=== PATIENT | female | born 1990 | race Two or more races ===

== ENCOUNTER 2020-07-07 09:21 | Inpatient (IN) | payer MEDICAID ==
[~2020-07-07] VITALS: Ht 157.5 cm; Wt 79.4 kg
[2020-07-07 10:36] LABS: BASOPHILS % 0.4 % (0.0-2.0); EOSINOPHILS % 0.8 % (0.0-5.0); HEMATOCRIT. 35.5 % (36.0-48.0); HEMOGLOBIN. 12.1 g/dL (12.0-16.0); LYMPHOCYTES % 22.7 % (20.0-50.0); MEAN CORPUSCULAR HEMOGLOBIN 30.7 pg (28.0-32.0); MEAN CORPUSCULAR VOLUME 89.8 fL (81.0-99.0); MEAN PLATELET VOLUME 10.4 fl (7.4-10.4); MONOCYTES % 8.6 % (2.0-8.0); NEUTROPHILS % 67.5 % (40.0-76.0); PLATELET 162 x1000/uL (130-400); RED BLOOD CELL COUNT 3.95 mill/uL (4.2-5.4); RED CELL DISTRIBUTION WIDTH 13.4 % (11.6-14.6)
[2020-07-07 10:43] LABS: CLARITY URINE CLEAR (CLEAR); COLOR URINE YELLOW (YELLOW); KETONES URINE NEGATIVE (NEGATIVE); LEUKOCYTE ESTERASE URINE 2+ (NEGATIVE); NITRITE URINE NEGATIVE (NEGATIVE); OCCULT BLOOD URINE NEGATIVE (NEGATIVE); PROTEIN URINE NEGATIVE (NEGATIVE); SPECIFIC GRAVITY URINE 1.008 (1.005-1.030); UROBILINOGEN URINE 0.2 E.U./dL (0.2-1.0)
[2020-07-07 11:10] LABS: *AMPHETAMINES SCREEN URINE NEGATIVE (NEGATIVE); *BARBITURATES SCREEN URINE NEGATIVE (NEGATIVE); *BENZODIAZEPINES SCREEN URINE NEGATIVE (NEGATIVE); *COCAINE SCREEN URINE NEGATIVE (NEGATIVE); INR 0.9; METHADONE URINE SCREEN NEGATIVE (NEGATIVE); PARTIAL THROMBOPLASTIN TIME 25.9 sec (23.4-31.0); PROTHROMBIN TIME 9.8 sec (9.6-11.0)
[2020-07-07 11:11] LABS: CANNABINOID URINE SCREEN NEGATIVE (NEGATIVE); OPIATES URINE SCREEN NEGATIVE (NEGATIVE); PHENCYCLIDINE URINE SCREEN NEGATIVE (NEGATIVE)
[2020-07-07 11:25] LABS: HEPATITIS B SURFACE ANTIGEN NEGATIVE
[2020-07-07] MEDS: LACTATED RINGERS 1,000 ML IV SCH ×2 (15:49→15:51)
[2020-07-07] MEDS ORDERED: DEXT 5%/LR + PITOCIN 20UNITS/L 1,000 ML IV SCH ×2 (15:51→22:14)
[2020-07-07] MEDS ORDERED: METHYLERGONOVINE MALEATE 0.2 MG/ML IM PRN (16:00)
[2020-07-07] MEDS ORDERED: NALOXONE HCL 0.4 MG/ML 1ML VIAL IM PRN (16:00)
[2020-07-07] MEDS ORDERED: CARBOPROST TROMETHAMINE 250 MCG/ML AMPUL IM PRN (16:00)
[2020-07-07] MEDS ORDERED: CITRIC ACID/SODIUM CITRATE SOLN 30ML UDC PO NR (20:55)
[2020-07-07] MEDS ORDERED: DIPHENHYDRAMINE 50MG/ML VIAL IV PRN (21:00)
[2020-07-07] MEDS ORDERED: BUTORPHANOL TARTRATE 2 MG/ML VIAL IM PRN (21:00)
[2020-07-07] MEDS ORDERED: KETOROLAC 30MG/ML VIAL IV PRN (21:00)
[2020-07-07] MEDS ORDERED: MORPHINE SULFATE/PF 1MG/ML 10ML AMP ONE (21:04)
[2020-07-07] MEDS ORDERED: STERILE WATER FOR INJECTION 10ML VIAL ONE (21:06)
[2020-07-07] MEDS ORDERED: EPHEDRINE SULFATE 50MG/ML VIAL ONE (21:06)
[2020-07-07] MEDS ORDERED: METOCLOPRAMIDE HCL 10MG/2ML VIAL ONE (21:06)
[2020-07-07] MEDS ORDERED: OXYTOCIN 10 UNITS/ML 1ML ONE (21:06)
[2020-07-07] MEDS ORDERED: ONDANSETRON HCL 4MG/2ML INJ ONE (21:06)
[2020-07-07] MEDS ORDERED: SODIUM CHLORIDE 0.9% 10ML VIAL ONE (21:06)
[2020-07-07] MEDS ORDERED: CEFAZOLIN SODIUM 1000MG/VIAL ONE (21:06)
[2020-07-07] MEDS ORDERED: GLYCOPYRROLATE 0.2 MG/ML 2ML VIAL ONE (21:10)
[2020-07-07] MEDS ORDERED: HYDROCODONE/ACETAMINOPHEN 5/325MG TABLET PO PRN (22:15)
[2020-07-07] MEDS ORDERED: HEMORRHOIDAL SUPP PR PRN (22:15)
[2020-07-07] MEDS ORDERED: ONDANSETRON HCL 4MG/2ML INJ IV PRN (22:15)
[2020-07-07] MEDS ORDERED: DIPHENHYDRAMINE 25MG CAPSULE PO PRN (22:15)
[2020-07-07] MEDS ORDERED: LANOLIN OINT 7GM TUBE TOP PRN (22:15)
[2020-07-07] MEDS ORDERED: BISACODYL 10MG SUPP PR PRN (22:15)
[2020-07-07] MEDS ORDERED: IBUPROFEN 400MG TABLET PO PRN (22:15)
[2020-07-07] MEDS ORDERED: LIDOCAINE HCL/PF 1% 10 MG/ML 5ML VIAL ONE (22:30)
[2020-07-08 00:45] VITALS: BP 106/64
[2020-07-08 04:00] VITALS: BP 99/51
[2020-07-08 06:23] LABS: BASOPHILS % 0.2 % (0.0-2.0); EOSINOPHILS % 0.2 % (0.0-5.0); HEMOGLOBIN. 9.3 g/dL (12.0-16.0); LYMPHOCYTES % 16.4 % (20.0-50.0); MEAN CORPUSCULAR HEMOGLOBIN 31.1 pg (28.0-32.0); MEAN CORPUSCULAR VOLUME 89.8 fL (81.0-99.0); MONOCYTES % 5.8 % (2.0-8.0); NEUTROPHILS % 77.4 % (40.0-76.0); PLATELET 125 x1000/uL (130-400); RED CELL DISTRIBUTION WIDTH 13.7 % (11.6-14.6)
[2020-07-08] MEDS: FERROUS SULFATE 325MG TABLET PO SCH ×3 (07:30→17:56)
[2020-07-08 08:00] VITALS: BP 104/51
[2020-07-08] MEDS: SIMETHICONE 80MG TABLET CHEW PO SCH ×4 (08:00→20:46)
[2020-07-08 12:00] VITALS: BP 100/51
[2020-07-08] MEDS ORDERED: DEXT 5%/LACTATED RINGERS 1,000 ML IV SCH (12:00)
[2020-07-08] MEDS: PRENATAL VIT/FE FUMARATE/FA TABLET PO SCH (13:39)
[2020-07-08 16:00] VITALS: BP 101/57
[2020-07-08 20:10] VITALS: BP 98/62
[2020-07-08] MEDS: DOCUSATE SODIUM 100MG CAPSULE PO SCH (20:46)
[2020-07-08] MEDS: ACETAMINOPHEN WITH CODEINE 300/30MG TABLET PO PRN (20:48)
[2020-07-09 00:30] VITALS: BP 120/79
[2020-07-09 04:00] VITALS: BP 110/56
[2020-07-09] MEDS: ACETAMINOPHEN WITH CODEINE 300/30MG TABLET PO PRN (04:23)
[2020-07-09 08:00] VITALS: BP 111/64
[2020-07-09] MEDS: SIMETHICONE 80MG TABLET CHEW PO SCH ×4 (09:08→20:48)
[2020-07-09] MEDS: PRENATAL VIT/FE FUMARATE/FA TABLET PO SCH (09:08)
[2020-07-09] MEDS: FERROUS SULFATE 325MG TABLET PO SCH ×3 (09:09→18:25)
[2020-07-09 16:14] VITALS: BP 98/56
[2020-07-09 19:15] VITALS: BP 104/63
[2020-07-09] MEDS: DOCUSATE SODIUM 100MG CAPSULE PO SCH (20:48)
[2020-07-10 04:00] VITALS: BP 108/71
[2020-07-10] MEDS ORDERED: IBUP-2028 PO (07:25)
[2020-07-10] MEDS ORDERED: FERR325T23 PO (07:25)
[2020-07-10 07:30] VITALS: BP 106/64
== END 2020-07-10 13:30 | disposition home or self-care (01) | DRG 540 ==
LOC: OBSVTOIN 09:21 → 8 EST LDRP 09:21 → 8EST NSY 07-08 01:26 → 8EST 07-08 01:32
PROVIDERS: ADMIT Obstetrics & Gynecology; ATTEND Obstetrics & Gynecology
PROC: 10D00Z1 Extraction of Products of Conception, Low, Open Approach (ICD-10-PCS; principal; 2020-07-07)
DX: O32.1XX0 Maternal care for breech presentation, not applicable or unspecified (principal); O99.12 Other diseases of the blood and blood-forming organs and certain disorders involving the immune mechanism complicating childbirth; O34.211 Maternal care for low transverse scar from previous cesarean delivery; D62 Acute posthemorrhagic anemia; D69.6 Thrombocytopenia, unspecified; O99.02 Anemia complicating childbirth; Z3A.40 40 weeks gestation of pregnancy; Z37.0 Single live birth
CPT/HCPCS: 36415; 76805; 80305; 81003; 85025; 86592; 86703; 86762; 86850; 86900; 87340; 88307; A4216; G0378; J0690; J1885; J2274; J2405; J2590; J2765; J3490; J7120; J7121